=== PATIENT | male | born 1945 | race Caucasian/White ===

== ENCOUNTER 2022-01-25 21:27 | Inpatient (IN) | payer MEDICARE, OTHER ==
[~2022-01-25] VITALS: Ht 177.8 cm; Wt 81.6 kg
--- NOTE | 2022-01-25 21:45 | NUR ---
BIBPA FOR PSYCH EVAL S/P GOT IN TO ARGUMENT WITH ANOTHER RESIDENT AT THE FACILITY. PATIENT ALERT AND ORIENTED X2. AMBULATORY WITH NON LABORED BREATHING IN BED 12 IN GOWN AND MONITOR AND POX. AWAITING MD DELAROSA.
[2022-01-25] MEDS ORDERED: LIDOCAINE 2% JEL UROJET 10 ML MM ONE (22:21)
--- NOTE | 2022-01-25 22:29 | NUR ---
URINE COLLECTED AND SENT TO LAB
--- NOTE | 2022-01-25 22:56 | NUR ---
COVID SWAB DONE AND SENT TO LAB
[2022-01-25 23:16] LABS: BASOPHILS # (AUTO) 0.1 K/uL (0.0-0.2); BASOPHILS % (AUTO) 0.6 % (0.0-2.0); EOSINOPHILS % (AUTO) 7.4 % (0.0-6.0); HEMATOCRIT 36 % (39-51); HEMOGLOBIN 11.8 g/dL (13.5-17.5); LYMPHOCYTES # (AUTO) 1.7 K/uL (0.8-4.8); LYMPHOCYTES % (AUTO) 20.6 % (20.0-44.0); MEAN CORPUSCULAR HGB CONC 33 g/dl (31.0-36.0); MEAN CORPUSCULAR VOLUME 95 fL (80-96); MONOCYTES # (AUTO) 0.8 K/uL (0.1-1.30); MONOCYTES % (AUTO) 9.8 % (2.0-12.0); NEUTROPHILS % (AUTO) 61.6 % (43.0-81.0); PLATELET COUNT (AUTO) 176 K/uL (150-450); RED BLOOD CELL COUNT(AUTO) 3.74 MIL/uL (4.5-6.0); WHITE BLOOD COUNT (AUTO) 8.2 K/uL (4.3-11.0)
[2022-01-25 23:27] LABS: CALCIUM, SERUM 9.1 mg/dL (8.5-10.1); CARBON DIOXIDE 33 mmol/L (21-32); CHLORIDE 106 mmol/L (98-107); GLUCOSE 101 mg/dL (74-106); POTASSIUM 4.2 mmol/L (3.5-5.1); SODIUM SERUM 141 mmol/L (136-145); UREA NITROGEN, BLOOD 25 mg/dL (7-18)
[2022-01-25 23:33] LABS: BILIRUBIN,URINE NEGATIVE (NEGATIVE); COLOR,URINE YELLOW (YELLOW); LEUKOCYTE ESTERASE ,URINE NEGATIVE (NEGATIVE); NITRITE, URINE NEGATIVE (NEGATIVE); PROTEIN,URINE NEGATIVE (NEGATIVE); UGLUCOSE NEGATIVE (NEGATIVE); UROBILINOGEN,URINE 0.2 EU/dL (0.2)
[2022-01-25 23:35] LABS: ALANINE AMINOTRANSFERASE 45 U/L (12-78); ALBUMIN 3.4 g/dL (3.4-5.0); ALKALINE PHOSPHATASE 98 U/L (46-116); ASPARTATE AMINOTRANSFERASE 23 U/L (15-37); BILIRUBIN,DIRECT 0.1 mg/dL (0.0-0.2); BILIRUBIN,TOTAL 0.2 mg/dL (0.2-1.0); TOTAL PROTEIN, SERUM 6.7 g/dL (6.4-8.2)
[2022-01-25 23:36] LABS: ACETAMINOPHEN 0 ug/ml (10-30); ALCOHOL, BLOOD < 3 mg/dL (0-0)
[2022-01-26] MEDS ORDERED: MINE133E RC (02:28)
[2022-01-26] MEDS ORDERED: MELA3TAB41 PO (02:28)
[2022-01-26] MEDS ORDERED: OLAN2.5T3 PO (02:28)
[2022-01-26] MEDS ORDERED: PANT40TA2 PO (02:28)
[2022-01-26] MEDS ORDERED: ACET325T53 PO ×2 (02:28)
[2022-01-26] MEDS ORDERED: METF-442 PO (02:28)
[2022-01-26] MEDS ORDERED: SENN-261 PO (02:28)
[2022-01-26] MEDS ORDERED: LORA-258 PO (02:28)
[2022-01-26] MEDS ORDERED: MULT-447 PO (02:28)
[2022-01-26] MEDS ORDERED: ASCO500C18 PO (02:28)
[2022-01-26] MEDS ORDERED: SERT100T PO (02:28)
[2022-01-26] MEDS ORDERED: ROSU10TA2 PO (02:28)
[2022-01-26] MEDS ORDERED: VITA1TAB20 PO (02:28)
[2022-01-26] MEDS ORDERED: DOCU-141 PO (02:28)
[2022-01-26] MEDS ORDERED: ZINC220T3 PO (02:28)
[2022-01-26] MEDS ORDERED: BISA10SU61 RC (02:28)
[2022-01-26] MEDS ORDERED: FINA5TAB11 PO (02:28)
[2022-01-26] MEDS ORDERED: CLOP75TA15 PO (02:28)
[2022-01-26] MEDS ORDERED: CLON0.5T PO (02:28)
[2022-01-26] MEDS ORDERED: MAGN400O21 PO (02:28)
[2022-01-26] MEDS ORDERED: POLY17PO4 PO (02:28)
[2022-01-26] MEDS ORDERED: MAGNESIUM HYDROXIDE 30 ML UDC PO PRN ×2 (03:30→04:30)
[2022-01-26] MEDS ORDERED: MAG HYDROX/AL HYDROX/SIMETH 30 ML UDC PO PRN (04:30)
[2022-01-26] MEDS ORDERED: BLOOD SUGAR DIAGNOSTIC 1 EACH STRIP IN ONE (04:30)
[2022-01-26] MEDS ORDERED: ACETAMINOPHEN 325 MG TABLET PO PRN (04:30)
[2022-01-26 04:41] VITALS: BP 136/77
--- NOTE | 2022-01-26 04:45 | NUR ---
pt was transferred to [facility] in stable condition
--- NOTE | 2022-01-26 05:39 | NUR ---
GPS BOX LINING MACHINE OPERATOR NOTES; RECEIVED PATIENT FROM ER, ORIGINALLY FROM THE [facility] ON [facility]. PATIENT ARRIVED ON THIS UNIT AT 0420 ON A STRETCHER WITH 2 ER ESCORT. PATIENT IS ON A 5150 HOLD FOR GD. HOLD WAS PLACED ON 01/26/22 AT 0112. PER HOLD, PATIENT WAS BIB AMBULANCE FROM THE [facility] ON [facility] D/T AGGRESSIVE BEHAVIOR AND STRIKING AT PEOPLE AND NONE COMPLIANCE WITH CARE. UPON FACE TO FACE EVALUATION, PATIENT IS A/O X1, APPEARS DEPRESSED, FLAT AFFECT, DISHEVELED, DISORGANIZED, DISORIENTED, CONFUSED, AND UNCOOPERATIVE. PATIENT HAS NO S/S OF PAIN. DENIES SI/HI AT THIS TIME. NO S/S OF RESPIRATORY DISTRESS. PATIENT RESPIRATION IS EVEN AND UNLABORED WITH EQUAL RISE AND FALL OF THE CHEST, ON ROOM AIR. PATIENT ASSISTED WITH TURNING AND REPOSITIONING FOR COMFORT AND CIRCULATION. PATIENT REFUSED TO SIGN ALL ADMISSION PAPER WORK. SKIN ASSESSMENT DONE, PICTURE TAKEN AND PLACED IN PATIENT CHART. BS 104MG/DL. PATIENT ADVISED OF HIS HOLD AND PATIENT RIGHTS BOOKLET AND PRESCRIPTION MEDICATION GUIDE GIVEN. PATIENT IS UNDER THE PSYCHIATRIC CARE OF DR. COE AND MEDICAL CARE OF DR ASHBY. BOTH DOCTORS HAVE BEEN INFORMED OF PATIENT ADMISSION AND ORDERS CARRIED OUT. PATIENT BELONGINGS WERE INVENTORIED AND CHECKED FOR CONTRABAND. PATIENT ADVANCED DIRECTIVES PREFERENCE, IMMUNIZATIONS QUESTIONER, NECESSARY PAPERWORK COMPLETED. PATIENT ORIENTED TO ROOM. PATIENT EDUCATED ON THE USE OF THE CALL GODINEZ. PATIENT HAS NO TORTS LAW PROFESSOR ON FILE TO INFORM OF PATIENT ADMISSION AND REFUSE TO GIVE ANY CONTACT INFORMATION. PATIENT BED IS LOCKED AND IN LOWEST POSITION, SIDE RAILS UP X2 FOR SAFETY. ALL PATIENT CARE NEEDS HAVE BEEN MET ANTICIPATED. I WILL CONTINUE TO MONITOR Q15 MINS FOR SAFETY, MOOD AND BEHAVIOR.
[2022-01-26] MEDS: METFORMIN 500 MG TABLET PO SCH ×2 (07:18→17:16)
--- NOTE | 2022-01-26 07:59 | NUR ---
WOUND CARE CONSULT: PT PRESENTS WITH RT GREAT TOE ULCER, SOME SCARRING TO LOWER LEGS AND SACRAL INTACT DEEP TISSUE INJURY, PRESENT ON ADMISSION. DR AZUL CALLED FOR DPM CONSULT. DISCUSSED SKIN PROTECTION WITH NURSING STAFF. PT IS AMBULATORY. IN AGREEMENT WITH PLAN OF CARE. Addendum: 01/26/22 at 0802 by DAYANA ALCALA WNDNU Amended: Links added.
[2022-01-26 08:00] VITALS: BP 109/57
[2022-01-26] MEDS ORDERED: GEL100GE TD (08:39)
[2022-01-26] MEDS ORDERED: PETR113O TP (08:39)
[2022-01-26] MEDS: SENNOSIDES 8.6 MG TABLET PO SCH ×2 (08:40→16:54)
[2022-01-26] MEDS: DOCUSATE SODIUM 100 MG CAPSULE PO SCH ×2 (08:40→16:53)
[2022-01-26] MEDS: PANTOPRAZOLE 40 MG TABLET.DR PO SCH (08:40)
[2022-01-26] MEDS: VITAMIN B COMP W-C 1 TAB TABLET PO SCH (08:40)
[2022-01-26] MEDS: ZINC SULFATE 220 MG CAPSULE PO SCH (08:40)
[2022-01-26] MEDS: CLOPIDOGREL BISULFATE 75 MG TABLET PO SCH (08:41)
[2022-01-26] MEDS: FINASTERIDE (5 MG) 5 MG TABLET PO SCH (08:41)
[2022-01-26] MEDS: MULTIVIT W/MINERALS 1 TAB TABLET PO SCH (08:41)
[2022-01-26] MEDS: ASCORBIC ACID 500 MG TABLET PO SCH (08:41)
[2022-01-26] MEDS: POLYETHYLENE GLYCOL 3350 17 GM POWD.PACK PO SCH ×2 (08:57→16:53)
[2022-01-26] MEDS ORDERED: DEXTROSE 50%-WATER 50 ML DISP.SYRIN IV PRN (12:00)
[2022-01-26] MEDS: BLOOD SUGAR DIAGNOSTIC 1 EACH STRIP IN SCH ×3 (12:50→22:20)
--- NOTE | 2022-01-26 13:49 | NUR ---
BOBBI Clinical Note: Pt placed on a 5150 hold for GD. Pt was aggressive at his facility and was striking out. Pt currently resides at The [facility] located at [address] [place] [address] . BOBBI spoke with admissions Mckenzie ([phone]) who stated that pt is welcomed back. BOBBI attempted to contact pt's Kita ([phone]) but the number did not go through.
--- NOTE | 2022-01-26 13:49 | NUR ---
BOBIB Initial Discharge Note: [facility] [place] [address] [facility] [place] [address] . BOBBI spoke with emery Mckenzie ([phone]) who stated that pt is welcomed back. BOBBI attempted to contact pt's Kita ([phone]) but the number did not go through. BOBBI will work with the MD, family, and pt to help coordinate appropriate discharge.
--- NOTE | 2022-01-26 13:49 | NUR ---
SW Family Contact: SW attempted to contact pt's Kita ([phone]) and the number did not go through at this time. SW will attempt again.
--- NOTE | 2022-01-26 13:50 | NUR ---
Treatment Plan: Pt refused to sign treatment plan and appeared confused/suspicious.
[2022-01-26 16:00] VITALS: BP 100/67
[2022-01-26] MEDS: OLANZAPINE 2.5 MG TABLET PO SCH (17:16)
[2022-01-26 20:01] VITALS: BP 125/73
[2022-01-26] MEDS: ATORVASTATIN 40 MG TABLET PO SCH (21:29)
[2022-01-26] MEDS: INSULIN REGULAR, HUMAN 100 UNIT/ML 3 ML VIAL SQ PRN (22:20)
[2022-01-26] MEDS: ZOLPIDEM TARTRATE 5 MG TABLET PO PRN (23:17)
[2022-01-27 07:26] LABS: CHOLESTEROL 112 mg/dL (<200); HDL CHOLESTEROL 40 mg/dL (40-60); LDL 60 mg/dL (0-99); TRIGLYCERIDES 72 mg/dL (30-150)
[2022-01-27] MEDS: BLOOD SUGAR DIAGNOSTIC 1 EACH STRIP IN SCH ×4 (07:36→21:34)
[2022-01-27] MEDS: INSULIN REGULAR, HUMAN 100 UNIT/ML 3 ML VIAL SQ PRN ×3 (07:38→21:35)
[2022-01-27 08:00] VITALS: BP 147/78
[2022-01-27] MEDS: OLANZAPINE 2.5 MG TABLET PO SCH (08:39)
[2022-01-27] MEDS: POLYETHYLENE GLYCOL 3350 17 GM POWD.PACK PO SCH ×2 (08:39→17:27)
[2022-01-27] MEDS: SENNOSIDES 8.6 MG TABLET PO SCH ×2 (08:39→17:27)
[2022-01-27] MEDS: VITAMIN B COMP W-C 1 TAB TABLET PO SCH (08:39)
[2022-01-27] MEDS: FINASTERIDE (5 MG) 5 MG TABLET PO SCH (08:39)
[2022-01-27] MEDS: ASCORBIC ACID 500 MG TABLET PO SCH (08:39)
[2022-01-27] MEDS: METFORMIN 500 MG TABLET PO SCH ×2 (08:39→17:27)
[2022-01-27] MEDS: CLOPIDOGREL BISULFATE 75 MG TABLET PO SCH (08:39)
[2022-01-27] MEDS: DOCUSATE SODIUM 100 MG CAPSULE PO SCH ×2 (08:39→17:27)
[2022-01-27] MEDS: MULTIVIT W/MINERALS 1 TAB TABLET PO SCH (08:39)
[2022-01-27] MEDS: PANTOPRAZOLE 40 MG TABLET.DR PO SCH (08:39)
[2022-01-27] MEDS: ZINC SULFATE 220 MG CAPSULE PO SCH (08:39)
[2022-01-27] MEDS: LORAZEPAM 0.5 MG TABLET PO PRN ×2 (13:50→20:00)
--- NOTE | 2022-01-27 13:51 | NUR ---
RN NOTE- PT AGITATED. ATIVAN 0.5 MG ADMINISTERED
[2022-01-27 16:00] VITALS: BP 115/61
[2022-01-27] MEDS ORDERED: OLANZAPINE 10 MG VIAL IM STA (16:20)
--- NOTE | 2022-01-27 16:21 | NUR ---
RN NOTE- PT AGITATED, YELLING , TRYING TO DAMAGE PRAVEEN CHAIR AND PROPERTY. DR COE INCREASED ZYPREXA PO AND ORDERED ZYPREXA 5 MG IM STAT. COMPLIED
[2022-01-27] MEDS: GLUCERNA SHAKE 237 ML CAN PO SCH (17:27)
[2022-01-27] MEDS: OLANZAPINE 5 MG TABLET PO SCH (17:36)
--- NOTE | 2022-01-27 19:50 | NUR ---
RN NOTE PATIENT REFUSED VITALS X 3, GOT AGITATED, AGGRESSIVE TO WARDS STAFF AND ATTEMPTED TO STRIKE AT STAFF. WILL TRY AGAIN LATER ONCE PATIENT IS CALM AND RELAXED.
--- NOTE | 2022-01-27 20:00 | NUR ---
RN NOTE: ANXIETY/AGITATION PATIENT IS ANXIOUS, AGITATED, AGGRESSIVE TOWARDS STAFF, TRYING TO STRIKE AT STAFF WHEN REDIRECTED, NON REDIRECTABLE AT THIS TIME. PRN ATIVAN 0.5 MG PO ADMINISTERED ORDERED BY .
[2022-01-27] MEDS: ATORVASTATIN 40 MG TABLET PO SCH (21:17)
--- NOTE | 2022-01-27 21:36 | NUR ---
RN NOTE: MEDICATION REFUSAL PATIENT'S BLOOD GLUCOSE LEVEL IS 156 MG/DL, PATIENT IS UNCOOPERATIVE AND UNPREDICTABLE AND REFUSED SSI ORDERED BT MD X 3 DEPITE OF RISKS AND BENEFIT EXPLANATIONS. PATIENT IS EASILY AGITATED AND AGGRESSIVE. PATIENT HAD APPLE JUICE AND PUDDING EARLIER AND TOLERATED WELL. WILL CONTINUE TO MONITOR.
[2022-01-27] MEDS: ZOLPIDEM TARTRATE 5 MG TABLET PO PRN (22:23)
--- NOTE | 2022-01-27 22:24 | NUR ---
RN NOTE: INSOMNIA PATIENT IS UNABLE TO SLEEP, ANXIOUS, RESTLESS. PRN AMBIEN 5 MG PO ADMINISTERED ORDERED BY MD. WILL CONTINUE TO MONITOR FOR ANY CHANGES.
[2022-01-28] MEDS: LORAZEPAM 0.5 MG TABLET PO PRN ×2 (06:52→19:33)
--- NOTE | 2022-01-28 06:55 | NUR ---
RN NOTE: ANXIETY PATIENT BECAME RESTLESS AND ANXIOUS, PRN ATIVAN 0.5 MG PO ADMINISTERED.
[2022-01-28] MEDS: BLOOD SUGAR DIAGNOSTIC 1 EACH STRIP IN SCH ×4 (07:02→22:29)
--- NOTE | 2022-01-28 07:02 | NUR ---
PATIENT'S BLOOD GLUCOSE LEVEL IS 112 MG/DL, NO SSI NEEDED AT THIS TIME. WILL ENDORSE TO AM RN FOR CONTINUITY OF CARE.
[2022-01-28 08:00] VITALS: BP 141/68
[2022-01-28] MEDS: METFORMIN 500 MG TABLET PO SCH ×2 (08:45→17:28)
[2022-01-28] MEDS: GLUCERNA SHAKE 237 ML CAN PO SCH ×2 (08:46→17:29)
[2022-01-28] MEDS: VITAMIN B COMP W-C 1 TAB TABLET PO SCH (09:00)
[2022-01-28] MEDS: DOCUSATE SODIUM 100 MG CAPSULE PO SCH ×2 (09:00→17:28)
[2022-01-28] MEDS: POLYETHYLENE GLYCOL 3350 17 GM POWD.PACK PO SCH ×2 (09:00→17:28)
[2022-01-28] MEDS: ASCORBIC ACID 500 MG TABLET PO SCH (09:00)
[2022-01-28] MEDS: OLANZAPINE 2.5 MG TABLET PO SCH (09:01)
[2022-01-28] MEDS: CLOPIDOGREL BISULFATE 75 MG TABLET PO SCH (09:01)
[2022-01-28] MEDS: PANTOPRAZOLE 40 MG TABLET.DR PO SCH (09:01)
[2022-01-28] MEDS: SENNOSIDES 8.6 MG TABLET PO SCH ×2 (09:01→17:28)
[2022-01-28] MEDS: FINASTERIDE (5 MG) 5 MG TABLET PO SCH (09:01)
[2022-01-28] MEDS: ZINC SULFATE 220 MG CAPSULE PO SCH (09:01)
[2022-01-28] MEDS: MULTIVIT W/MINERALS 1 TAB TABLET PO SCH (09:01)
[2022-01-28 16:00] VITALS: BP 110/68
[2022-01-28] MEDS: OLANZAPINE 5 MG TABLET PO SCH (17:28)
--- NOTE | 2022-01-28 19:35 | NUR ---
RN NOTES: ANXIETY PT. NOTED VERY ANXIOUS,RESTLESS,REFUSED TO STAYING IN BED, PARANOID,NONREDIRECTABLE PRN ATIVAN 0.5 MG PO GIVEN FOR PT. BEHAVIOR, WILL CONTINUE TO MONITOR.
--- NOTE | 2022-01-28 20:07 | NUR ---
RN NOTES: PATIENT SITTING UP ON GERICHAIR IN THE HALLWAY. PT IS CONFUSED,PARANOID, HYPERVERBAL ,TALKING TO SELF NEEDS FREQUENT REDIRECTIONS. AGITATED, IRRITABLE AND AGGRESSIVE EASILY, UNCOOPERATIVE, UNPREDICTABLE, ATTEMPTS TO STRIKE AT STAFF, NON REDIRECTABLE AT TIMES. PRN ATIVAN GIVEN. UNSTEADY GAIT. FALL RISK. SAFETY PRECAUTIONS IN PLACE. WILL CONTINUE TO MONITOR .Q15MIN ROUNDS FOR SAFETY AND BEHAVIOR.
[2022-01-28 20:57] VITALS: BP 127/71
--- NOTE | 2022-01-28 21:16 | NUR ---
PATIENT IS AGITATED AND UNCOOPERATIVE. UNABLE TO PERFORM LOWER EXTREMITY ARTERIAL DUPLEX BILATERAL. SPOKE TO MARINO RUDD.
--- NOTE | 2022-01-28 21:17 | NUR ---
RN NOTE: PLACED CALL TO MAY LACEY # [phone] REGARDING ABOUT ARTERIAL DPLR PER MD ORDERS , NOTED PT. BEHAVIOR STILL UNCOOERTIVE ANXIOUS , RESTLESS, PARNOID, UNABLE TO DO AT THIS TIME DUE TO PT. BEHAVIOR UNCOOPERATIVE PER US CUSTOMS AND BORDER OFFICER MARVIN , WILL TRY AGAIN IN MORING AND CHARGE NURSE MADE AWARE.
[2022-01-28] MEDS: ATORVASTATIN 40 MG TABLET PO SCH (22:17)
[2022-01-28] MEDS: ZOLPIDEM TARTRATE 5 MG TABLET PO PRN (22:34)
--- NOTE | 2022-01-28 22:36 | NUR ---
RN NOTES: INSOMNIA PATIENT IS UNABLE TO SLEEP, ANXIOUS, RESTLESS. PRN AMBIEN 5 MG PO ADMINISTERED ORDERED BY MD. WILL CONTINUE TO MONITOR .
[2022-01-29] MEDS: BLOOD SUGAR DIAGNOSTIC 1 EACH STRIP IN SCH ×4 (07:30→21:17)
[2022-01-29 08:00] VITALS: BP 151/89
[2022-01-29] MEDS: SENNOSIDES 8.6 MG TABLET PO SCH ×2 (08:14→17:03)
[2022-01-29] MEDS: MULTIVIT W/MINERALS 1 TAB TABLET PO SCH (08:14)
[2022-01-29] MEDS: METFORMIN 500 MG TABLET PO SCH ×2 (08:14→17:02)
[2022-01-29] MEDS: GLUCERNA SHAKE 237 ML CAN PO SCH ×2 (08:14→17:00)
[2022-01-29] MEDS: VITAMIN B COMP W-C 1 TAB TABLET PO SCH (08:14)
[2022-01-29] MEDS: LORAZEPAM 0.5 MG TABLET PO PRN ×2 (08:14→20:49)
[2022-01-29] MEDS: DOCUSATE SODIUM 100 MG CAPSULE PO SCH ×2 (08:14→17:02)
[2022-01-29] MEDS: FINASTERIDE (5 MG) 5 MG TABLET PO SCH (08:14)
[2022-01-29] MEDS: ZINC SULFATE 220 MG CAPSULE PO SCH (08:14)
[2022-01-29] MEDS: CLOPIDOGREL BISULFATE 75 MG TABLET PO SCH (08:15)
[2022-01-29] MEDS: POLYETHYLENE GLYCOL 3350 17 GM POWD.PACK PO SCH ×2 (08:15→17:02)
[2022-01-29] MEDS: OLANZAPINE 2.5 MG TABLET PO SCH (08:15)
[2022-01-29] MEDS: PANTOPRAZOLE 40 MG TABLET.DR PO SCH (08:15)
[2022-01-29] MEDS: ASCORBIC ACID 500 MG TABLET PO SCH (08:15)
--- NOTE | 2022-01-29 10:15 | NUR ---
UNABLE TO DO ARTERIAL DUPLEX LOWER EXTREMITY BILATERAL - 2ND TRY. PATIENT SEATED AND UNCOOPERATIVE. MAGAZINE FILLER ALEX ADVISED.
--- NOTE | 2022-01-29 10:44 | NUR ---
GPS/RN PT IS ANXIOUS, REFUSED ACCUCHECK OFFERED X3
[2022-01-29 16:00] VITALS: BP 117/70
[2022-01-29] MEDS: OLANZAPINE 5 MG TABLET PO SCH (17:02)
--- NOTE | 2022-01-29 20:07 | NUR ---
RN NOTES: RECEIVED PATIENT SITTING UP ON GERICHAIR IN THE HALLWAY. PT. IS CONFUSED,PARANOID, HYPERVERBAL ,TALKING TO SELF NEEDS FREQUENT REDIRECTIONS. AGITATED, IRRITABLE AND AGGRESSIVE EASILY, UNCOOPERATIVE, UNPREDICTABLE, ATTEMPTS TO STRIKE AT STAFF, NON REDIRECTABLE AT TIMES. PRN ATIVAN GIVEN. UNSTEADY GAIT. FALL RISK. SAFETY PRECAUTIONS IN PLACE. WILL CONTINUE TO MONITOR
[2022-01-29 20:32] VITALS: BP 128/73
--- NOTE | 2022-01-29 20:50 | NUR ---
RN NOTES: ANXIETY PT. NOTED VERY ANXIOUS,RESTLESS,REFUSED TO STAYING IN BED, PARANOID, HYPERVERBAL ,NONREDIRECTABLE PRN ATIVAN 0.5 MG PO GIVEN FOR PT. BEHAVIOR.
[2022-01-29] MEDS: ATORVASTATIN 40 MG TABLET PO SCH (21:07)
[2022-01-30] MEDS: BLOOD SUGAR DIAGNOSTIC 1 EACH STRIP IN SCH ×4 (07:30→22:05)
[2022-01-30 08:00] VITALS: BP 144/73
[2022-01-30] MEDS: PANTOPRAZOLE 40 MG TABLET.DR PO SCH (08:12)
[2022-01-30] MEDS: OLANZAPINE 2.5 MG TABLET PO SCH (08:12)
[2022-01-30] MEDS: CLOPIDOGREL BISULFATE 75 MG TABLET PO SCH (08:12)
[2022-01-30] MEDS: MULTIVIT W/MINERALS 1 TAB TABLET PO SCH (08:12)
[2022-01-30] MEDS: METFORMIN 500 MG TABLET PO SCH ×2 (08:12→16:51)
[2022-01-30] MEDS: ASCORBIC ACID 500 MG TABLET PO SCH (08:12)
[2022-01-30] MEDS: GLUCERNA SHAKE 237 ML CAN PO SCH ×2 (08:13→16:51)
[2022-01-30] MEDS: FINASTERIDE (5 MG) 5 MG TABLET PO SCH (08:13)
[2022-01-30] MEDS: SENNOSIDES 8.6 MG TABLET PO SCH ×2 (08:13→16:51)
[2022-01-30] MEDS: POLYETHYLENE GLYCOL 3350 17 GM POWD.PACK PO SCH ×2 (08:13→16:51)
[2022-01-30] MEDS: ZINC SULFATE 220 MG CAPSULE PO SCH (08:13)
[2022-01-30] MEDS: DOCUSATE SODIUM 100 MG CAPSULE PO SCH ×2 (08:13→16:51)
[2022-01-30] MEDS: LORAZEPAM 0.5 MG TABLET PO PRN ×3 (08:13→23:47)
[2022-01-30] MEDS: VITAMIN B COMP W-C 1 TAB TABLET PO SCH (08:45)
[2022-01-30 16:00] VITALS: BP 112/67
[2022-01-30] MEDS: OLANZAPINE 5 MG TABLET PO SCH (16:51)
[2022-01-30 19:45] VITALS: BP 116/60
[2022-01-30 20:04] VITALS: BP 116/60
[2022-01-30] MEDS: ATORVASTATIN 40 MG TABLET PO SCH (21:40)
--- NOTE | 2022-01-30 22:06 | NUR ---
RN NOTE PATIENT'S BLOOD GLUCOSE LEVEL IS 88 MG/DL. SNACK AND ORANGE JUICE OFFERED TO THE PATIENT AND TOLERATED WELL. WILL CONTINUE TO MONITOR FOR ANY CHANGES.
[2022-01-30] MEDS: ZOLPIDEM TARTRATE 5 MG TABLET PO PRN (22:08)
--- NOTE | 2022-01-30 22:09 | NUR ---
RN NOTE: INSOMNIA PATIENT IS UNABLE TO SLEEP, ANXIOUS AND RESTLESS. PRN AMBIEN 5 MG PO ADMINISTERED ORDERED BY .
--- NOTE | 2022-01-30 23:50 | NUR ---
RN NOTE: ANXIETY PATIENT IS RESTLESS, ANXIOUS, BANGING ON PRAVEEN CHAIR TRAY, REFUSES TO STAY IN BED, NON REDIRECTABLE AT THIS TIME. PRN ATIVAN 0.5 MG PO ADMINISTERED ORDERED. WILL CONTINUE TO MONITOR FOR ANY CHANGES.
[2022-01-31] MEDS: BLOOD SUGAR DIAGNOSTIC 1 EACH STRIP IN SCH ×4 (07:30→21:15)
[2022-01-31] MEDS: METFORMIN 500 MG TABLET PO SCH ×2 (07:53→16:18)
--- NOTE | 2022-01-31 07:57 | NUR ---
RN NOTES AM RECEIVED PATIENT IN BED SLEEPING, EASY TO AUROSE, INTRODUCED SELF PT WAS CONFUSED,PARANOID, HYPERVERBAL ,TALKING TO SELF WHEN HE WOKE UP AND WAS SERVED BREAKFAST, HE NEEDS FREQUENT REDIRECTIONS. PT IS AGITATED, IRRITABLE AND AGGRESSIVE BE ADVISED HE IS UNCOOPERATIVE, UNPREDICTABLE, & MAY ATTEMPT TO STRIKE AT STAFF AT ANY GIVEN TIME AND FOR ANY REASON, PT HAS AN UNSTEADY GAIT. PT IS A FALL RISK. SAFETY PRECAUTIONS ARE IN PLACE AT THIS TIME BED IS LOW TO THE FLOOR, ALL WHEELS ARE LOCKED, STAFF AND MYSELF WILL CONTINUE TO MONITOR FOR SAFETY
[2022-01-31 08:00] VITALS: BP 134/76
[2022-01-31] MEDS: MULTIVIT W/MINERALS 1 TAB TABLET PO SCH (08:00)
[2022-01-31] MEDS: ZINC SULFATE 220 MG CAPSULE PO SCH (08:00)
[2022-01-31] MEDS: DOCUSATE SODIUM 100 MG CAPSULE PO SCH ×2 (08:00→16:05)
[2022-01-31] MEDS: VITAMIN B COMP W-C 1 TAB TABLET PO SCH (08:00)
[2022-01-31] MEDS: ASCORBIC ACID 500 MG TABLET PO SCH (08:00)
[2022-01-31] MEDS: CLOPIDOGREL BISULFATE 75 MG TABLET PO SCH (08:00)
[2022-01-31] MEDS: GLUCERNA SHAKE 237 ML CAN PO SCH ×2 (08:01→16:18)
[2022-01-31] MEDS: PANTOPRAZOLE 40 MG TABLET.DR PO SCH (08:01)
[2022-01-31] MEDS: SENNOSIDES 8.6 MG TABLET PO SCH ×2 (08:01→16:05)
[2022-01-31] MEDS: FINASTERIDE (5 MG) 5 MG TABLET PO SCH (08:01)
[2022-01-31] MEDS: POLYETHYLENE GLYCOL 3350 17 GM POWD.PACK PO SCH ×2 (08:01→16:19)
[2022-01-31] MEDS: OLANZAPINE 2.5 MG TABLET PO SCH (08:01)
[2022-01-31] MEDS: INSULIN REGULAR, HUMAN 100 UNIT/ML 3 ML VIAL SQ PRN ×3 (12:35→21:21)
[2022-01-31 16:00] VITALS: BP 136/78
[2022-01-31] MEDS: OLANZAPINE 5 MG TABLET PO SCH (18:17)
--- NOTE | 2022-01-31 19:03 | NUR ---
PT COMPLIANT WITH ALL CARE, COOPERATIVE, TOOK ALL MEDICATIONS CRUSHED IN PUDDING, HAD NO C/O PAIN SHOWED NO S/S OF ANY SOB, NO DISTRESS , WAS NOT AGITATED AND VERY COOPERATIVE DURING AM SHIFT, ALL NEEDS MET IN A TIMELY MANNER, KEPT DRY CLEAN, AND REPOSITIONED ON OWN IN PRAVEEN CHAIR AND MOVED SEAT UP AND DOWN FOR COMFORT REPOSITIONED AT LEAST EVERY 2 HOUR AND MORE PT IS ABLE TO MAKE ADJUSTMENTS.
[2022-01-31 20:00] VITALS: BP 138/78
[2022-01-31] MEDS: LORAZEPAM 0.5 MG TABLET PO PRN (20:21)
[2022-01-31] MEDS: ATORVASTATIN 40 MG TABLET PO SCH (21:09)
[2022-02-01 08:00] VITALS: BP 119/98
[2022-02-01] MEDS: VITAMIN B COMP W-C 1 TAB TABLET PO SCH (08:16)
[2022-02-01] MEDS: SENNOSIDES 8.6 MG TABLET PO SCH ×2 (08:16→17:36)
[2022-02-01] MEDS: CLOPIDOGREL BISULFATE 75 MG TABLET PO SCH (08:16)
[2022-02-01] MEDS: FINASTERIDE (5 MG) 5 MG TABLET PO SCH (08:16)
[2022-02-01] MEDS: POLYETHYLENE GLYCOL 3350 17 GM POWD.PACK PO SCH ×2 (08:16→17:36)
[2022-02-01] MEDS: PANTOPRAZOLE 40 MG TABLET.DR PO SCH (08:16)
[2022-02-01] MEDS: OLANZAPINE 2.5 MG TABLET PO SCH (08:16)
[2022-02-01] MEDS: DOCUSATE SODIUM 100 MG CAPSULE PO SCH ×2 (08:16→17:36)
[2022-02-01] MEDS: MULTIVIT W/MINERALS 1 TAB TABLET PO SCH (08:16)
[2022-02-01] MEDS: ZINC SULFATE 220 MG CAPSULE PO SCH (08:16)
[2022-02-01] MEDS: METFORMIN 500 MG TABLET PO SCH ×2 (08:16→17:36)
[2022-02-01] MEDS: GLUCERNA SHAKE 237 ML CAN PO SCH ×2 (08:17→17:36)
[2022-02-01] MEDS: BLOOD SUGAR DIAGNOSTIC 1 EACH STRIP IN SCH ×4 (08:18→21:30)
[2022-02-01] MEDS: ASCORBIC ACID 500 MG TABLET PO SCH (08:51)
--- NOTE | 2022-02-01 11:27 | NUR ---
Court Notification: SW attempted to contact pt's Kita ([phone]) to notify of [phone], however, phone number did not go through.
--- NOTE | 2022-02-01 11:28 | NUR ---
Court Hearing: Patient's court hearing for 2990 was today and it was upheld for GD.
[2022-02-01] MEDS: INSULIN REGULAR, HUMAN 100 UNIT/ML 3 ML VIAL SQ PRN ×3 (12:38→21:34)
[2022-02-01 16:00] VITALS: BP 104/70
[2022-02-01] MEDS: OLANZAPINE 5 MG TABLET PO SCH (17:36)
[2022-02-01 20:06] VITALS: BP 122/72
[2022-02-01] MEDS: LORAZEPAM 0.5 MG TABLET PO PRN (20:43)
[2022-02-01] MEDS: ATORVASTATIN 40 MG TABLET PO SCH (21:19)
[2022-02-01] MEDS: ZOLPIDEM TARTRATE 5 MG TABLET PO PRN (22:44)
[2022-02-02 08:00] VITALS: BP 155/73
[2022-02-02] MEDS: METFORMIN 500 MG TABLET PO SCH ×2 (08:18→17:35)
[2022-02-02] MEDS: BLOOD SUGAR DIAGNOSTIC 1 EACH STRIP IN SCH ×4 (08:18→22:06)
[2022-02-02] MEDS: GLUCERNA SHAKE 237 ML CAN PO SCH ×2 (08:24→17:37)
[2022-02-02] MEDS: ZINC SULFATE 220 MG CAPSULE PO SCH (09:29)
[2022-02-02] MEDS: CLOPIDOGREL BISULFATE 75 MG TABLET PO SCH (09:29)
[2022-02-02] MEDS: VITAMIN B COMP W-C 1 TAB TABLET PO SCH (09:29)
[2022-02-02] MEDS: OLANZAPINE 2.5 MG TABLET PO SCH (09:29)
[2022-02-02] MEDS: SENNOSIDES 8.6 MG TABLET PO SCH ×2 (09:29→17:35)
[2022-02-02] MEDS: ASCORBIC ACID 500 MG TABLET PO SCH (09:29)
[2022-02-02] MEDS: FINASTERIDE (5 MG) 5 MG TABLET PO SCH (09:30)
[2022-02-02] MEDS: MULTIVIT W/MINERALS 1 TAB TABLET PO SCH (09:30)
[2022-02-02] MEDS: PANTOPRAZOLE 40 MG TABLET.DR PO SCH (09:30)
[2022-02-02] MEDS: DOCUSATE SODIUM 100 MG CAPSULE PO SCH ×2 (09:32→17:35)
[2022-02-02] MEDS: POLYETHYLENE GLYCOL 3350 17 GM POWD.PACK PO SCH ×2 (09:32→17:35)
[2022-02-02] MEDS: INSULIN REGULAR, HUMAN 100 UNIT/ML 3 ML VIAL SQ PRN (13:00)
[2022-02-02 16:00] VITALS: BP 144/87
[2022-02-02] MEDS: OLANZAPINE 5 MG TABLET PO SCH (17:35)
--- NOTE | 2022-02-02 18:39 | NUR ---
Called VIET GUO DNP aware of result of right LE DOPPLER . (Right posterior tibial vein thrombosis.Otherwise no evidence of deep venous thrombosis in the right lower extremity veins).
--- NOTE | 2022-02-02 18:40 | NUR ---
DR. VIET ANTOINE DNP WILL CONSULT WITH SPECIALIST AND LET US KNOW IF PT NEED TREATMENT.
--- NOTE | 2022-02-02 19:26 | NUR ---
GPS RN OPENING NOTES: RECEIVED PATIENT IN HALLWAY SITTING IN PRAVEEN CHAIR. PATIENT IS AWAKE, A/O X1. APPEARS DEPRESSED, BLUNTED AFFECT, DISHEVELED, DISORGANIZED, DISORIENTED, CONFUSED. PATIENT HAS POOR INSIGHT, POOR JUDGEMENT. UNABLE TO GIVE APPROPRIATE ANSWERS TO QUESTIONS. PATIENT HAS NO S/S OF DISTRESS. RESPIRATION EVEN AND UNLABORED WITH EQUAL RISE AND FALL OF THE CHEST, ON ROOM AIR. PATIENT IS OFFERED FLUID AND SNACKS TOLERATED. WILL CONTINUE TO MONITOR Q15 MINS FOR MOOD, BEHAVIOR AND SAFETY.
[2022-02-02 20:00] VITALS: BP 150/75
[2022-02-02] MEDS: ZOLPIDEM TARTRATE 5 MG TABLET PO PRN (21:53)
[2022-02-02] MEDS: ATORVASTATIN 40 MG TABLET PO SCH (21:53)
--- NOTE | 2022-02-02 22:00 | NUR ---
GPS RN NOTES: AMBIEN 5MG GIVEN PO FOR SLEEP AT 2153. WILL CONTINUE TO MONITOR.
--- NOTE | 2022-02-02 22:07 | NUR ---
GPS RN NOTES: BS109 AT 2200. NO COVERAGE NEEDED
[2022-02-03 08:00] VITALS: BP 146/64
[2022-02-03 08:26] LABS: BASOPHILS # (AUTO) 0.1 K/uL (0.0-0.2); BASOPHILS % (AUTO) 0.8 % (0.0-2.0); EOSINOPHILS % (AUTO) 5.1 % (0.0-6.0); HEMATOCRIT 38 % (39-51); HEMOGLOBIN 12.2 g/dL (13.5-17.5); LYMPHOCYTES % (AUTO) 13.8 % (20.0-44.0); MEAN CORPUSCULAR HGB CONC 32 g/dl (31.0-36.0); MEAN CORPUSCULAR VOLUME 95 fL (80-96); MONOCYTES # (AUTO) 0.7 K/uL (0.1-1.30); MONOCYTES % (AUTO) 9.4 % (2.0-12.0); NEUTROPHILS # (AUTO) 5.2 K/uL (1.8-8.9); NEUTROPHILS % (AUTO) 70.9 % (43.0-81.0); PLATELET COUNT (AUTO) 178 K/uL (150-450); RED BLOOD CELL COUNT(AUTO) 3.95 MIL/uL (4.5-6.0); WHITE BLOOD COUNT (AUTO) 7.3 K/uL (4.3-11.0)
[2022-02-03 08:41] LABS: CALCIUM, SERUM 9.2 mg/dL (8.5-10.1); CREATININE 0.8 mg/dL (0.6-1.3); POTASSIUM 3.8 mmol/L (3.5-5.1)
[2022-02-03] MEDS: BLOOD SUGAR DIAGNOSTIC 1 EACH STRIP IN SCH ×4 (09:12→21:39)
[2022-02-03] MEDS: GLUCERNA SHAKE 237 ML CAN PO SCH ×2 (09:12→16:40)
[2022-02-03] MEDS: CLOPIDOGREL BISULFATE 75 MG TABLET PO SCH (09:13)
[2022-02-03] MEDS: ASCORBIC ACID 500 MG TABLET PO SCH (09:13)
[2022-02-03] MEDS: SENNOSIDES 8.6 MG TABLET PO SCH ×2 (09:13→16:39)
[2022-02-03] MEDS: OLANZAPINE 2.5 MG TABLET PO SCH (09:13)
[2022-02-03] MEDS: ZINC SULFATE 220 MG CAPSULE PO SCH (09:13)
[2022-02-03] MEDS: POLYETHYLENE GLYCOL 3350 17 GM POWD.PACK PO SCH ×2 (09:13→16:43)
[2022-02-03] MEDS: FINASTERIDE (5 MG) 5 MG TABLET PO SCH (09:13)
[2022-02-03] MEDS: VITAMIN B COMP W-C 1 TAB TABLET PO SCH (09:13)
[2022-02-03] MEDS: MULTIVIT W/MINERALS 1 TAB TABLET PO SCH (09:13)
[2022-02-03] MEDS: DOCUSATE SODIUM 100 MG CAPSULE PO SCH ×2 (09:13→13:00)
[2022-02-03] MEDS: METFORMIN 500 MG TABLET PO SCH ×2 (09:13→16:36)
[2022-02-03] MEDS: PANTOPRAZOLE 40 MG TABLET.DR PO SCH (09:13)
--- NOTE | 2022-02-03 09:16 | NUR ---
SW Family Contact: SW attempted to contact pt's Kita ([phone]) and the number did not go through. Unable to leave a voicemail.
--- NOTE | 2022-02-03 09:16 | NUR ---
Individual Therapy: Pt unable to have a proper conversation due to his confusion and disorganization.
[2022-02-03 16:00] VITALS: BP 144/67
[2022-02-03] MEDS: INSULIN REGULAR, HUMAN 100 UNIT/ML 3 ML VIAL SQ PRN ×2 (16:01→21:40)
[2022-02-03] MEDS: OLANZAPINE 5 MG TABLET PO SCH (16:36)
[2022-02-03] MEDS: APIXABAN 5 MG TABLET PO SCH (16:39)
--- NOTE | 2022-02-03 19:51 | NUR ---
GPS MISSION WORKER NOTE: RECEIVED PATIENT IN HALLWAY SITTING IN PRAVEEN CHAIR. PATIENT IS AWAKE, A/O X1. APPEARS DEPRESSED, BLUNTED AFFECT, DISHEVELED, DISORGANIZED, DISORIENTED, CONFUSED. PATIENT HAS POOR INSIGHT, POOR JUDGEMENT. UNABLE TO GIVE APPROPRIATE ANSWERS TO QUESTIONS. PATIENT HAS NO S/S OF DISTRESS. RESPIRATION EVEN AND UNLABORED WITH EQUAL RISE AND FALL OF THE CHEST, ON ROOM AIR. WILL CONTINUE TO MONITOR Q15 MINS FOR MOOD, BEHAVIOR AND SAFETY.
[2022-02-03 20:00] VITALS: BP 146/90
[2022-02-03] MEDS: ATORVASTATIN 40 MG TABLET PO SCH (21:05)
[2022-02-03] MEDS: ZOLPIDEM TARTRATE 5 MG TABLET PO PRN (21:06)
--- NOTE | 2022-02-03 21:48 | NUR ---
PRN Ambien 5 mg given for insomnia. Resident still wide awake at this time, calm , no sob, cont to monitor and anticipate needs.
--- NOTE | 2022-02-04 01:12 | NUR ---
Pt noted sleeping at this time, easy to arouse, breathing even and unlabored. Will cont to monitor and anticipate needs.
--- NOTE | 2022-02-04 02:00 | NUR ---
Pt woke up , no sob no s/sx of distress, needs attended, cont to monitor.
--- NOTE | 2022-02-04 05:48 | NUR ---
TELEHEALTH NURSE CLOSING NOTE PT COMPLIANT WITH ALL CARE, COOPERATIVE, TOOK ALL MEDICATIONS AND TOLERATED, NO SIGNS AND SX OF BLEEDING NOTED. HAD NO C/O PAIN SHOWED NO S/S OF ANY SOB, NO DISTRESS , WAS NOT AGITATED AND VERY COOPERATIVE DURING SHIFT, ALL NEEDS ATTENDED AND ANTICIPATED, KEPT DRY CLEAN, AND REPOSITIONED ON OWN IN PRAVEEN CHAIR AND MOVED SEAT UP AND DOWN FOR COMFORT REPOSITIONED AT LEAST EVERY 2 HOURS. SAFETY MEASURES OBSERVED, WILL ENDORSE TO INCOMING AM NURSE FOR CONTINUITY OF CARE.
[2022-02-04] MEDS: BLOOD SUGAR DIAGNOSTIC 1 EACH STRIP IN SCH ×4 (06:50→22:12)
[2022-02-04] MEDS: INSULIN REGULAR, HUMAN 100 UNIT/ML 3 ML VIAL SQ PRN ×3 (06:50→22:32)
[2022-02-04 07:14] LABS: BASOPHILS # (AUTO) 0.1 K/uL (0.0-0.2); EOSINOPHILS % (AUTO) 7.6 % (0.0-6.0); HEMATOCRIT 39 % (39-51); HEMOGLOBIN 12.6 g/dL (13.5-17.5); LYMPHOCYTES # (AUTO) 1.3 K/uL (0.8-4.8); LYMPHOCYTES % (AUTO) 19.2 % (20.0-44.0); MEAN CORPUSCULAR HGB CONC 33 g/dl (31.0-36.0); MEAN CORPUSCULAR VOLUME 96 fL (80-96); MONOCYTES # (AUTO) 0.6 K/uL (0.1-1.30); MONOCYTES % (AUTO) 8.3 % (2.0-12.0); NEUTROPHILS # (AUTO) 4.3 K/uL (1.8-8.9); NEUTROPHILS % (AUTO) 63.9 % (43.0-81.0); PLATELET COUNT (AUTO) 200 K/uL (150-450); RED BLOOD CELL COUNT(AUTO) 4.04 MIL/uL (4.5-6.0); WHITE BLOOD COUNT (AUTO) 6.7 K/uL (4.3-11.0)
[2022-02-04 07:43] LABS: CALCIUM, SERUM 9.3 mg/dL (8.5-10.1); CREATININE 0.9 mg/dL (0.6-1.3); POTASSIUM 3.6 mmol/L (3.5-5.1)
[2022-02-04 08:00] VITALS: BP 137/84
[2022-02-04] MEDS: ASCORBIC ACID 500 MG TABLET PO SCH (08:31)
[2022-02-04] MEDS: CLOPIDOGREL BISULFATE 75 MG TABLET PO SCH (08:32)
[2022-02-04] MEDS: METFORMIN 500 MG TABLET PO SCH ×2 (08:32→17:02)
[2022-02-04] MEDS: PANTOPRAZOLE 40 MG TABLET.DR PO SCH (08:32)
[2022-02-04] MEDS: DOCUSATE SODIUM 100 MG CAPSULE PO SCH ×2 (08:32→17:02)
[2022-02-04] MEDS: MULTIVIT W/MINERALS 1 TAB TABLET PO SCH (08:32)
[2022-02-04] MEDS: OLANZAPINE 2.5 MG TABLET PO SCH (08:32)
[2022-02-04] MEDS: ZINC SULFATE 220 MG CAPSULE PO SCH (08:32)
[2022-02-04] MEDS: VITAMIN B COMP W-C 1 TAB TABLET PO SCH (08:32)
[2022-02-04] MEDS: FINASTERIDE (5 MG) 5 MG TABLET PO SCH (08:32)
[2022-02-04] MEDS: APIXABAN 5 MG TABLET PO SCH ×2 (08:34→17:09)
[2022-02-04] MEDS: SENNOSIDES 8.6 MG TABLET PO SCH ×2 (08:37→17:02)
[2022-02-04] MEDS: POLYETHYLENE GLYCOL 3350 17 GM POWD.PACK PO SCH ×2 (08:37→17:02)
[2022-02-04] MEDS: GLUCERNA SHAKE 237 ML CAN PO SCH ×2 (08:40→17:03)
[2022-02-04 16:00] VITALS: BP 131/67
[2022-02-04] MEDS: LORAZEPAM 0.5 MG TABLET PO PRN (17:02)
[2022-02-04] MEDS: OLANZAPINE 5 MG TABLET PO SCH (17:02)
--- NOTE | 2022-02-04 19:30 | NUR ---
RECEIVED PT ASLEEP IN BED BUT EASILY AWAKENS, NO S/S OR COMPLAINTS OF PAIN AT THIS TIME. PT IS DISPLAYING NO S/S OF APPARENT DISTRESS AT THIS TIME. PT BREATHING IS UNLABORED WITH EQUAL RISE AND FALL OF THE CHEST. PT IS ALERT AND ORIENTED X1. DISORGANIZED, CONFUSED, NEEDS FREQUENT REDIRECTION, AMBULATORY. ON ROOM AIR WITH AN SPO2 OF 98-99%. PT IS COMPLIANT WITH MEDICATION AND COOPERATIVE. PT DENIES SUICIDE IDEATIONS AND HOMICIDAL IDEATIONS AT THIS TIME. HAS RT LOWER LEG EDEMA. PT ASSISTED WITH TURNING AND REPOSITIONING Q2H AND PRN FOR COMFORT AND CIRCULATION. PT HAS NO NEEDS AT THIS TIME. PT EDUCATED ON THE USE OF THE CALL GODINEZ. PT BED SIDE RAILS UP X2 FOR SAFETY. BED IS LOCKED AND IN LOW. WILL CONTINUE TO MONITOR Q15 MIN WITH THE HELP OF STAFF TO MAINTAIN SAFETY.
[2022-02-04 20:14] VITALS: BP 129/69
[2022-02-04] MEDS: ATORVASTATIN 40 MG TABLET PO SCH (22:09)
[2022-02-05] MEDS: ZOLPIDEM TARTRATE 5 MG TABLET PO PRN ×2 (01:14→23:12)
[2022-02-05] MEDS: LORAZEPAM 0.5 MG TABLET PO PRN ×2 (01:23→20:39)
--- NOTE | 2022-02-05 06:54 | NUR ---
PT AWAKE UNTIL 01:45AM. PERFORMED ACCU CHECK ON PATIENT WITH A BLOOD SUGAR RESULT OF 134, 2 UNITS OF INSULIN GIVEN ORDERED. DUE MEDS GIVEN ORDERED. WOUND CARE PERFORMED. NEEDS ATTENDED. SAFETY MEASURES MAINTAINED. REMINDED PT ON THE USE OF THE CALL GODINEZ. PT BED SIDE RAILS UP X2 FOR SAFETY. BED IS LOCKED AND IN LOW POSITION. WILL ENDORSE TO NEXT NURSE ON DUTY FOR CONTINUITY OF CARE.
--- NOTE | 2022-02-05 07:39 | NUR ---
RN NOTE RECEIVED PT AWAKE SITTING IN BED. NOT IN DISTRESS. VERBALLY RESPONSIVE. NO COMPLAINTS OF PAIN AT THIS TIME. WILL CONT TO MONITOR. Addendum: 02/05/22 at 0743 by SEBASTIAN JANSEN RN WRONG ENTRY
--- NOTE | 2022-02-05 07:43 | NUR ---
RN NOTE RECEIVED PT ASLEEP IN BED, RESPONSIVE TO STIMULI. IN ROOM AIR. NOT IN DISTRESS. SAFETY MEASURES FOLLOWED. WILL CONT TO MONITOR.
[2022-02-05 08:00] VITALS: BP 125/58
[2022-02-05] MEDS: GLUCERNA SHAKE 237 ML CAN PO SCH ×2 (08:00→17:19)
[2022-02-05] MEDS: OLANZAPINE 2.5 MG TABLET PO SCH (08:32)
[2022-02-05] MEDS: BLOOD SUGAR DIAGNOSTIC 1 EACH STRIP IN SCH ×4 (08:38→22:22)
[2022-02-05] MEDS: POLYETHYLENE GLYCOL 3350 17 GM POWD.PACK PO SCH ×2 (08:40→17:00)
[2022-02-05] MEDS: VITAMIN B COMP W-C 1 TAB TABLET PO SCH (08:40)
[2022-02-05] MEDS: SENNOSIDES 8.6 MG TABLET PO SCH ×2 (08:40→17:00)
[2022-02-05] MEDS: ASCORBIC ACID 500 MG TABLET PO SCH (08:40)
[2022-02-05] MEDS: CLOPIDOGREL BISULFATE 75 MG TABLET PO SCH (08:40)
[2022-02-05] MEDS: MULTIVIT W/MINERALS 1 TAB TABLET PO SCH (08:40)
[2022-02-05] MEDS: METFORMIN 500 MG TABLET PO SCH ×2 (08:40→17:04)
[2022-02-05] MEDS: ZINC SULFATE 220 MG CAPSULE PO SCH (08:40)
[2022-02-05] MEDS: APIXABAN 5 MG TABLET PO SCH ×2 (08:42→17:07)
[2022-02-05] MEDS: PANTOPRAZOLE 40 MG TABLET.DR PO SCH (08:46)
[2022-02-05] MEDS: FINASTERIDE (5 MG) 5 MG TABLET PO SCH (08:46)
[2022-02-05] MEDS: DOCUSATE SODIUM 100 MG CAPSULE PO SCH ×2 (08:46→17:00)
[2022-02-05 16:00] VITALS: BP 99/61
[2022-02-05] MEDS: OLANZAPINE 5 MG TABLET PO SCH (17:04)
--- NOTE | 2022-02-05 18:13 | NUR ---
RN NOTE PT RESTING IN PRAVEEN CHAIR. PT WITH NO NOTED AGITATION, AGGRESSION THIS SHIFT. PT COMPLIANT TO MEDS AND MORNING CARE. V/S STABLE. SAFETY MEASURES MAINTAINED.
--- NOTE | 2022-02-05 18:15 | NUR ---
RN NOTE WOUND CARE DONE ON R BIG TOE. NO ACTIVE BLEEDING NOTED.
[2022-02-05] MEDS: ATORVASTATIN 40 MG TABLET PO SCH (20:39)
--- NOTE | 2022-02-05 20:44 | NUR ---
ANXIETY/RESTLESS Patient up in Vanesa chair, restless and confused. Trying to get out from Vanesa chair. PRN Ativan given, will reassess behavior.
[2022-02-05 20:55] VITALS: BP 118/61
[2022-02-05] MEDS: INSULIN REGULAR, HUMAN 100 UNIT/ML 3 ML VIAL SQ PRN (22:22)
--- NOTE | 2022-02-05 23:12 | NUR ---
UNABLE TO SLEEP Patient still awake, hyperverbal. Unable to sleep. Given Ambien. Will monitor hours of sleep. Fall precaution maintained.
--- NOTE | 2022-02-06 07:07 | NUR ---
END OF SHIFT Hours of sleep 6. Dressing changed to right great toe. Left foot blanchable redness. Maintained fall precaution.
[2022-02-06 08:00] VITALS: BP 116/54
[2022-02-06] MEDS: MULTIVIT W/MINERALS 1 TAB TABLET PO SCH (08:31)
[2022-02-06] MEDS: OLANZAPINE 2.5 MG TABLET PO SCH (08:31)
[2022-02-06] MEDS: SENNOSIDES 8.6 MG TABLET PO SCH ×2 (08:31→16:27)
[2022-02-06] MEDS: BLOOD SUGAR DIAGNOSTIC 1 EACH STRIP IN SCH ×4 (08:31→22:17)
[2022-02-06] MEDS: POLYETHYLENE GLYCOL 3350 17 GM POWD.PACK PO SCH ×2 (08:31→16:27)
[2022-02-06] MEDS: ASCORBIC ACID 500 MG TABLET PO SCH (08:31)
[2022-02-06] MEDS: INSULIN REGULAR, HUMAN 100 UNIT/ML 3 ML VIAL SQ PRN ×4 (08:31→22:20)
[2022-02-06] MEDS: APIXABAN 5 MG TABLET PO SCH ×2 (08:32→16:27)
[2022-02-06] MEDS: PANTOPRAZOLE 40 MG TABLET.DR PO SCH (08:32)
[2022-02-06] MEDS: METFORMIN 500 MG TABLET PO SCH ×2 (08:32→17:17)
[2022-02-06] MEDS: DOCUSATE SODIUM 100 MG CAPSULE PO SCH ×2 (08:32→16:27)
[2022-02-06] MEDS: FINASTERIDE (5 MG) 5 MG TABLET PO SCH (08:32)
[2022-02-06] MEDS: VITAMIN B COMP W-C 1 TAB TABLET PO SCH (08:32)
[2022-02-06] MEDS: CLOPIDOGREL BISULFATE 75 MG TABLET PO SCH (08:32)
[2022-02-06] MEDS: ZINC SULFATE 220 MG CAPSULE PO SCH (08:32)
[2022-02-06] MEDS: GLUCERNA SHAKE 237 ML CAN PO SCH ×2 (08:42→16:28)
--- NOTE | 2022-02-06 10:37 | NUR ---
RN NOTE- CONFUSED, ORIENTED TO SELF ONLY, ASSISTED AT MEALS, DISORGANIZED, PRAVEEN CHAIR.
[2022-02-06 16:00] VITALS: BP 121/64
[2022-02-06] MEDS: OLANZAPINE 5 MG TABLET PO SCH (17:17)
[2022-02-06 20:21] VITALS: BP 122/66
[2022-02-06] MEDS: ATORVASTATIN 40 MG TABLET PO SCH (22:23)
[2022-02-06] MEDS: ZOLPIDEM TARTRATE 5 MG TABLET PO PRN (22:23)
--- NOTE | 2022-02-06 22:24 | NUR ---
Pt unable to sleep. Least restrictive measures ineffective. Ambien 5 mg po prn given as ordered. Will continue to monitor.
--- NOTE | 2022-02-06 23:30 | NUR ---
Post 1 hr Terranceien effective. Pt asleep in bed easy to arouse. Frequent visual check done for safety. Will continue to monitor. Will endorse to next shift.
[2022-02-07] MEDS: LORAZEPAM 0.5 MG TABLET PO PRN ×2 (03:46→19:25)
--- NOTE | 2022-02-07 03:47 | NUR ---
Pt awake and agitated constantly climbing out of bed and roaming in room. Least restrictive measures ineffective. Ativan 0.5 mg po prn given as ordered. Will continue to monitor.
--- NOTE | 2022-02-07 04:50 | NUR ---
Post 1 hr Ativan effective. Pt calm and asleep easy to arouse. Will continue to monitor. Will endorse to next shift.
[2022-02-07] MEDS: BLOOD SUGAR DIAGNOSTIC 1 EACH STRIP IN SCH ×4 (07:51→22:54)
[2022-02-07 08:00] VITALS: BP 137/77
[2022-02-07] MEDS: DOCUSATE SODIUM 100 MG CAPSULE PO SCH ×2 (08:40→17:42)
[2022-02-07] MEDS: ASCORBIC ACID 500 MG TABLET PO SCH (08:40)
[2022-02-07] MEDS: POLYETHYLENE GLYCOL 3350 17 GM POWD.PACK PO SCH ×2 (08:40→17:41)
[2022-02-07] MEDS: OLANZAPINE 2.5 MG TABLET PO SCH (08:40)
[2022-02-07] MEDS: FINASTERIDE (5 MG) 5 MG TABLET PO SCH (08:40)
[2022-02-07] MEDS: GLUCERNA SHAKE 237 ML CAN PO SCH ×2 (08:40→17:42)
[2022-02-07] MEDS: ZINC SULFATE 220 MG CAPSULE PO SCH (08:40)
[2022-02-07] MEDS: MULTIVIT W/MINERALS 1 TAB TABLET PO SCH (08:41)
[2022-02-07] MEDS: SENNOSIDES 8.6 MG TABLET PO SCH ×2 (08:41→17:42)
[2022-02-07] MEDS: CLOPIDOGREL BISULFATE 75 MG TABLET PO SCH (08:41)
[2022-02-07] MEDS: METFORMIN 500 MG TABLET PO SCH ×2 (08:41→17:42)
[2022-02-07] MEDS: PANTOPRAZOLE 40 MG TABLET.DR PO SCH (08:41)
[2022-02-07] MEDS: VITAMIN B COMP W-C 1 TAB TABLET PO SCH (08:41)
[2022-02-07] MEDS: APIXABAN 5 MG TABLET PO SCH ×2 (08:45→17:42)
--- NOTE | 2022-02-07 15:29 | NUR ---
WOUND CARE DONE, PROCEDURE TOLERATED WELL.
[2022-02-07 16:00] VITALS: BP 136/76
--- NOTE | 2022-02-07 16:38 | NUR ---
SEEN BY DR. COE. IN STABLE CONDITION.
[2022-02-07] MEDS: OLANZAPINE 5 MG TABLET PO SCH (17:42)
[2022-02-07] MEDS: ZOLPIDEM TARTRATE 5 MG TABLET PO PRN (21:40)
[2022-02-07 22:49] VITALS: BP 142/89
[2022-02-07] MEDS: INSULIN REGULAR, HUMAN 100 UNIT/ML 3 ML VIAL SQ PRN (22:55)
[2022-02-07] MEDS: ATORVASTATIN 40 MG TABLET PO SCH (22:56)
[2022-02-08] MEDS: METFORMIN 500 MG TABLET PO SCH (07:34)
[2022-02-08] MEDS: BLOOD SUGAR DIAGNOSTIC 1 EACH STRIP IN SCH ×2 (07:34→12:14)
[2022-02-08 08:00] VITALS: BP 138/65
--- NOTE | 2022-02-08 08:05 | NUR ---
BOBBI Discharge Note: Pt will be discharged to [facility] located at [address] [place] [address] . Please arrange ambulance at 1PM. BOBBI has attempted to contact pts multiple times Kita ([phone]) and phone does not go through. Upon discharge, the pt appears to be in a dysphoric mood and presented with a congruent affect. Pt appears to be alert and oriented x2. Pt denies both suicidal and homicidal ideation as well as auditory and visual hallucinations. Pt appears to be ambulatory with a steady gait. Pt appears to be disheveled and inappropriately dressed. Pt will be under the care of her psychiatrist, Dr. Quintanilla, located at [address] [facility] [address], [place] [address]; and her statement clerks manager, Dr. Bartholomew [place] at [address] [facility], [address], [place] [address]; ([phone]). The choice of vendor form and multidisciplinary exit care form were done, printed, signed, and given to the patient.
[2022-02-08] MEDS: GLUCERNA SHAKE 237 ML CAN PO SCH (08:07)
[2022-02-08] MEDS: ZINC SULFATE 220 MG CAPSULE PO SCH (09:00)
[2022-02-08] MEDS: PANTOPRAZOLE 40 MG TABLET.DR PO SCH (09:00)
[2022-02-08] MEDS: SENNOSIDES 8.6 MG TABLET PO SCH ×2 (09:00→09:12)
[2022-02-08] MEDS: POLYETHYLENE GLYCOL 3350 17 GM POWD.PACK PO SCH ×2 (09:00→09:03)
[2022-02-08] MEDS: MULTIVIT W/MINERALS 1 TAB TABLET PO SCH (09:00)
[2022-02-08] MEDS: DOCUSATE SODIUM 100 MG CAPSULE PO SCH (09:01)
[2022-02-08] MEDS: CLOPIDOGREL BISULFATE 75 MG TABLET PO SCH (09:01)
[2022-02-08] MEDS: FINASTERIDE (5 MG) 5 MG TABLET PO SCH (09:01)
[2022-02-08] MEDS: OLANZAPINE 2.5 MG TABLET PO SCH (09:01)
[2022-02-08] MEDS: VITAMIN B COMP W-C 1 TAB TABLET PO SCH (09:01)
[2022-02-08] MEDS: ASCORBIC ACID 500 MG TABLET PO SCH (09:01)
[2022-02-08] MEDS: APIXABAN 5 MG TABLET PO SCH (09:02)
--- NOTE | 2022-02-08 09:52 | NUR ---
RN-CO: Patient is calm and cooperative to care. Denied suicidal and homicidal ideations. Denied command hallucination. No acute distress noted and no signs and symptoms of pain and discomforts.Medically cleared for discharge. DR Bauer via phone call ordered to dc pt to SNF and discontinue hold, noted and carried out.
[2022-02-08] MEDS: INSULIN REGULAR, HUMAN 100 UNIT/ML 3 ML VIAL SQ PRN (12:31)
--- NOTE | 2022-02-08 13:15 | NUR ---
DISASTER RESPONSE DIRECTOR NOTE PATIENT DISCHARGE IN STABLE CONDITION TO [facility] REPORT GIVEN TO ZORAN,PATIENT IS CALM AND COOPERATIVE TO CARE,DENIED AND SUICIDAL AND HOMICIDAL IDEATIONS,DR COE CLEARED PHYSIC AND RAMON MARCANO CLEARED MEDICALLY,PATIENT LEFT HOSPITAL IN STABLE CONDITION.ALERT ORIENTED X2 VERBALLY RESPONSIVE NO SOB NOT ACUTE DISTRESS NOTED.
[2022-02-11] MEDS ORDERED: APIXABAN 5 MG TABLET PO SCH (09:00)
== END 2022-02-08 13:15 | DRG 880 ==
LOC: ER 21:54 → GPS 01-26 02:52
PROVIDERS: ADMIT Psychiatry & Neurology Psychiatry; ATTEND Nurse Practitioner Acute Care
DX: F05 Delirium due to known physiological condition (principal); N17.0 Acute kidney failure with tubular necrosis; F02.81 Dementia in other diseases classified elsewhere, unspecified severity, with behavioral disturbance; I82.441 Acute embolism and thrombosis of right tibial vein; E11.9 Type 2 diabetes mellitus without complications; N40.0 Benign prostatic hyperplasia without lower urinary tract symptoms; K70.30 Alcoholic cirrhosis of liver without ascites; F29 Unspecified psychosis not due to a substance or known physiological condition; Z88.1 Allergy status to other antibiotic agents; Z79.02 Long term (current) use of antithrombotics/antiplatelets; Z79.899 Other long term (current) drug therapy; Z79.84 Long term (current) use of oral hypoglycemic drugs; I10 Essential (primary) hypertension; F39 Unspecified mood [affective] disorder; Z73.6 Limitation of activities due to disability; F43.10 Post-traumatic stress disorder, unspecified; R26.9 Unspecified abnormalities of gait and mobility; S91.101A Unspecified open wound of right great toe without damage to nail, initial encounter; X58.XXXA Exposure to other specified factors, initial encounter; Y92.9 Unspecified place or not applicable; F32.9 Major depressive disorder, single episode, unspecified; M79.89 Other specified soft tissue disorders; G30.9 Alzheimer's disease, unspecified; F10.20 Alcohol dependence, uncomplicated; Y90.0 Blood alcohol level of less than 20 mg/100 ml
CPT/HCPCS: 36415; 73620-TC; 80048-TC; 80061-TC; 80076-TC; 82565-TC; 82962-TC; 85025-TC; 87081-TC; 93971-TC; 97116-TC; 97530-TC; A6253; C9803; G0480; J1815; J3490